=== PATIENT | male | born 1955 | race Hispanic/Latino ===

== ENCOUNTER 2024-07-31 16:15 | Emergency (ER) | payer OTHER ==
[~2024-07-31] VITALS: Ht 152.4 cm; Wt 75.7 kg
--- NOTE | 2024-07-31 16:29 | ERN ---
ED Note History of Present Illness Stated Complaint: SEND BY RONNELL Chief Complaint: Abdominal Pain Time Seen by MD: 16:19 Dictation: Patient is a 69-year-old male with a past medical history of hyperlipidemia, diabetes type 2, heart disease, and leukemia presents to the ED for pain in the right upper abdomen. Patient denies any chest pain, nausea, vomiting, diarrhea, fevers, or chills. Patient denies any association of pain with eating. Allergies: Coded Allergies: iodine (Unverified Allergy, Unknown, 07/31/24) TOPICAL Home Meds Active Scripts Pantoprazole Sodium (Protonix) 40 Mg Ectab, 1 TAB PO DAILY for 10 Days, #10 TAB 0 Refills Prov:JEREMY MCADNIEL MD 07/31/24 Naproxen (Naproxen) 500 Mg Tablet, 1 TAB PO BID for pain for 10 Days, #20 TAB 0 Refills Prov:JEREMY MCDANIEL MD 07/31/24 Past Medical History Past Medical History: Cancer, Diabetes-Type II, High Cholesterol, Heart Disease Additional Past Medical Hx: NEUROPATHY, LEUKEMIA Surgical History: None Review of System Dictation Constitutional-no chills, weight loss/gain, fever Eyes-no injury, pain, redness and discharge ENT-no injury, pain, swelling Cardiovascular no chest pain, palpitations, edema Respiratory no shortness of breath, cough, wheezing Abdomen/GI-no diarrhea, constipation, vomiting, nausea. Positive for pain in upper right abdomen Back no injury and pain Genitourinary no injury, bleeding and discharge Musculoskeletal/extremities no injury, deformity Skin no rash, discoloration Neuro-no headache, weakness, numbness, tingling, seizures, tremors Psych-no suicidal ideation, homicidal ideation, hallucinations, depression, anxiety, memory loss Initial Vital Sign VS Vital Signs Date Time Temp Pulse Resp B/P (MAP) Pulse Ox O2 Delivery O2 Flow Rate FiO2 07/31/24 16:18 98.2 61 16 173/84 99 Room Air 0 07/31/24 16:48 21 Physical Exam Dictation VITAL SIGNS: Reviewed. GENERAL APPEARANCE: Alert, oriented x3, no acute distress, obese. HEAD AND FACE: Non-traumatic. EYES: PERRL, pink conjunctivas, eyelid no trauma, anterior chamber clear. EARS: Pinnas intact and no signs of trauma or erythema. Ear canals clear and no discharge. TMs no erythema. NOSE: No discharge, no bleeding. OROPHARYNX: Mouth normal, teeth no caries, tongue pink. Pharynx clear, no erythema. Tonsils no exudates, no abscesses noted. Mucous membrane moist. NECK: Supple, non-tender, no thyromegaly, no masses, no JVD, no bruits. BREAST: Deferred. CHEST: No tenderness, no crepitus, no paradoxical movement, no retractions. LUNGS: Clear, well-ventilated, symmetric, no rales, no wheezing, no rhonchi, no stridor, good breath sounds bilaterally. HEART: Regular rate, regular rhythm, no murmur, no gallops. VASCULAR: No peripheral edema. ABDOMEN: Soft, positive bowel sounds, nondistended, no guarding, nontender, no rebound, no masses no hepatomegaly, no splenomegaly, no Okeefe's sign, no hernias. Pain on palpation of RUQ RECTAL: Swelling, lesion, possible pilonidal cyst GENITAL: Deferred. NEUROLOGICAL: Normal speech, gross motor function intact, gross sensory function intact. MUSCULOSKELETAL: Neck nontender, full range of motion, back nontender, full range of motion. EXTREMITIES: Nontender, full range of motion. SKIN: Color pink, dry, no turgor, no rash, no lacerations, no abrasions, no contusions. LYMPHATICS: Deferred. Results (Laboratory/Radiology) Laboratory/Radiology Laboratory Tests Test 07/31/24 12:44 07/31/24 16:45 Urine Color COLORLESS (YELLOW) Urine Appearance CLEAR (CLEAR) Urine pH 7.5 (5.0-8.0) Urine Specific [place] 1.013 (1.001-1.031) Urine Protein 10 mg/dL (NEGATIVE) H Urine Glucose (UA) >=1000 mg/dL (NEGATIVE) H Urine Ketones NEGATIVE mg/dL (NEGATIVE) Urine Occult Blood NEGATIVE (NEGATIVE) Urine Nitrate NEGATIVE (NEGATIVE) Urine Bilirubin NEGATIVE mg/dL (NEGATIVE) Urine Urobilinogen 0.2 mg/dL (0.2-1.0) Urine Leukocyte Esterase NEGATIVE Suzy/uL Urine RBC 0-1 /HPF (0-1) Urine WBC 0-1 /HPF (0-1) Urine Squamous Epithelial Cells RARE /HPF (0-2) Urine Bacteria None /HPF (None Seen) White Blood Count 25.6 K/uL (4.8-10.8) H Red Blood Count 4.69 MIL/uL (4.50-6.20) Hemoglobin 14.4 g/dL (14.0-18.0) Hematocrit 42.5 % (42-54) Mean Corpuscular Volume 90.6 fL (79-99) Mean Corpuscular Hemoglobin 30.7 pg (27.0-33.0) Mean Corpuscular Hemoglobin Concent 33.9 g/dL (32.0-36.0) Red Cell Distribution Width 13.3 % (11.0-15.5) Platelet Count 281 K/uL (130-400) Mean Platelet Volume 9.5 fL (7.5-10.5) Immature Granulocyte % (Auto) 12.6 % (0-1) H Neutrophils (%) (Auto) 64.2 % (40.0-77.0) Lymphocytes (%) (Auto) 12.3 % (21.0-51.0) L Monocytes (%) (Auto) 5.9 % (3.0-13.0) Eosinophils (%) (Auto) 1.1 % (0.0-8.0) Basophils (%) (Auto) 3.9 % (0.0-5.0) Neutrophils # (Auto) 16.4 K/uL (1.8-7.7) H Lymphocytes # (Auto) 3.1 K/uL (1.0-4.8) Monocytes # (Auto) 1.5 K/uL (0.1-1.0) H Eosinophils # (Auto) 0.27 K/uL (0.00-0.70) Basophils # (Auto) 1.00 K/uL (0.00-0.20) H Absolute Immature Granulocyte (auto 3.23 K/uL (0-1) H Nucleated Red Blood Cells 0.2 % (0.0-0.19) H Sodium Level 137 mmol/L (136-145) Potassium Level 3.4 mmol/L (3.5-5.1) L Chloride Level 100 mmol/L (101-111) L Carbon Dioxide Level 32 mmol/L (21-32) Blood Urea Nitrogen 9 mg/dL (7-18) Creatinine 0.8 mg/dL (0.5-1.3) Glomerular Filtration Rate Calc 95 mL/min (>90) Random Glucose 302 mg/dL (70-105) H Total Calcium 8.8 mg/dL (8.5-10.1) Total Bilirubin 0.3 mg/dL (0.2-1.0) Aspartate Amino Transf (AST/SGOT) 42 U/L (10-37) H Alanine Aminotransferase (ALT/SGPT) 54 U/L (12-78) Alkaline Phosphatase 173 U/L (50-136) H Total Protein 8.4 g/dL (6.0-8.3) H Albumin 3.7 g/dL (3.5-5.0) Lipase 72 U/L (16-77) Ultrasound Comment: Abdominal Ultrasound: IMPRESSION: Partially collapsed gallbladder with nonspecific gallbladder wall thickening. No evidence of pericholecystic edema. Normal appearance of the liver, pancreas, right kidney. CT Scan Comment: CT abdomen/pelvis w/o contrast: Findings: No evidence of nephro or ureterolithiasis is found. No hydronephrosis or ureteral dilatation is seen. The lung bases are clear. The stomach is unremarkable. It shows no wall thickening. No gross ulceration is seen. It is not overly distended. There are no surrounding inflammatory changes. No wall lesions are identified to suggest cancer. The spleen is unremarkable. It is not enlarged. The pancreas shows normal anatomy. It is not fatty replaced. It shows no lesions. The pancreatic duct is not dilated. The gallbladder is unremarkable. It shows no cholelithiasis. The gallbladder wall is normal in thickness. There is no pericholecystic fluid. The is no acute or chronic inflammation noted. The adrenal glands are unremarkable. There is no enlargement. No lesions are noted. The liver is unremarkable. It shows no focal masses. The appendix is unremarkable. It shows no evidence of inflammation. No appendicolith is seen. The small bowel is unremarkable. There is no evidence of dilatation to suggest obstruction. No evidence of adynamic ileus is seen. There is no small bowel wall thickening to suggest enteritis. The colon is unremarkable. The urinary bladder is unremarkable. There is no wall thickening to suggest tumor or inflammation. There are no intraluminal calculi. There are no diverticula. There is no evidence of chronic bladder outlet obstruction. There is no evidence of urinary bladder distention to suggest urinary retention. The other pelvic structures are unremarkable. The bony and vascular structures are unremarkable for the patient's age. IMPRESSION: NEGATIVE CT SCAN OF THE ABDOMEN AND PELVIS WITH ORAL AND IV CONTRAST. ED Course ED Course Orders Procedure Category Date Status Time Cbc With Differential LAB 07/31/24 Complete 16:20 Comprehensive LAB 07/31/24 Complete Metabolic Panel 16:20 Lipase LAB 07/31/24 Complete 16:20 Urinalysis Profile LAB 07/31/24 Complete 16:20 Pantoprazole 40mg Inj PHA 07/31/24 Complete (Protonix 40mg Inj 16:30 0.9%Nacl 1000ml (Ns PHA 07/31/24 Complete 1000ml) 16:30 Us Abdominal Ruq\Ltd US 07/31/24 Resulted 16:20 Ct Abdomen/Pelvis CT 07/31/24 Resulted W/Contrast 17:40 Iohexol (Omnipaque) PHA 07/31/24 Complete 17:56 Ketorolac PHA 07/31/24 Complete Tromethamine 15mg/Ml 19:00 Ketorolac PHA 07/31/24 Complete Tromethamine 15mg/Ml 19:00 Current Medications Medications (Trade) Dose Ordered Sig/Willi Route PRN Reason Start Time Stop Time Status Last Admin Dose Admin Iohexol (Omnipaque) 75 ml STK-MED ONCE IV 07/31/24 17:56 07/31/24 18:01 DC Ketorolac Tromethamine (toRADol) 15 mg ONCE ONCE IM 07/31/24 19:00 07/31/24 19:01 DC Ketorolac Tromethamine (toRADol) 15 mg ONCE ONCE IV 07/31/24 19:00 07/31/24 19:01 DC 07/31/24 19:04 Pantoprazole Sodium (PROTonix 40MG INJ) 40 mg ONCE ONCE IVP 07/31/24 16:30 07/31/24 16:31 DC 07/31/24 16:55 Sodium Chloride 2,271 ml @ 757 mls/hr ONCE ONCE IV 07/31/24 16:30 07/31/24 19:29 DC 07/31/24 16:55 Vital Signs Date Time Temp Pulse Resp B/P (MAP) Pulse Ox O2 Delivery O2 Flow Rate FiO2 07/31/24 19:39 98.4 75 18 141/75 99 Room Air* 0 21 07/31/24 18:35 98.4 85 18 184/104 99 Room Air* 0 21 07/31/24 16:48 98.4 74 18 176/67 98 Room Air* 0 21 07/31/24 16:18 98.2 61 16 173/84 99 Room Air 0 Medical Decision Making MDM MDM INITIAL IMPRESSION Initial history and physical concerning for cholelithiasis Contributing medical problems: Obesity, hypercholesterolemia I have reviewed the triage nursing notes and vital signs. Initial plan: Laboratory evaluation, Abdominal U/S, UA DATA REVIEW I have reviewed additional NN, repeat VS, and monitoring where indicated. Heart rate, blood pressure, and O2 saturation are acceptable. ED COURSE Interventions: Fluids, Toradol 15mg Reassessment: DISPOSITION Final diagnostic impression: biliary colic I discussed my findings, clinical impression and treatment recommendations with the patient. My final plan for disposition was made based upon -mild risk of complications and potential morbidity of the patient's condition. -Discussion with the patient regarding management options. Patient will be discharged and advised to follow up PCP DX & DISP Disposition: Discharge Departure Impression: Primary Impression: Biliary colic Condition: Stable Scripts Pantoprazole Sodium (Protonix) 40 Mg Ectab 1 TAB PO DAILY for 10 Days, #10 TAB 0 Refills Prov: JEREMY MCDANIEL MD 07/31/24 Naproxen (Naproxen) 500 Mg Tablet 1 TAB PO BID for pain for 10 Days, #20 TAB 0 Refills Prov: JEREMY MCDANIEL MD 07/31/24 Additional Instructions: Focus on eating a low fat diet to minimize gallbladder stimulation. Limit or avoid foods high in fat including fried foods, fatty meats, and dairy products. Increase your fiber intake through fruits, vegetables, and whole grains. Stay well hydrated to maintain bile flow. Follow up with primary care provider. FOLLOW-UP WITH PRIMARY CARE PROVIDER IN 1 TO 2 DAYS. TAKE MEDICATIONS DIRECTED HERE IN THE EMERGENCY ROOM. OKAY TO CONTINUE HOME MEDICATIONS UNLESS OTHERWISE DISCUSSED DURING YOUR VISIT IN THE EMERGENCY ROOM TODAY. RETURN TO YOUR NEAREST EMERGENCY ROOM IF SYMPTOMS WORSEN OR IF THERE IS NO IMPROVEMENT. CALL 911 IF YOU NEED IMMEDIATE ASSISTANCE. TAKE TYLENOL [id number] NEEDED AND IF NO CONTRAINDICATIONS ARE PRESENT. INCREASE ORAL HYDRATION. A WOUND CULTURE OR URINE CULTURE WAS ORDERED HERE IN THE EMERGENCY ROOM DEPARTMENT PLEASE FOLLOW-UP WITH PRIMARY CARE PROVIDER AND ADVISE THEM TO GET REPEAT PORTS FROM OUR FACILITY. IF YOU HAD ANY SHARLENE WRAP/SPLINTS THAT WERE APPLIED HERE, PLEASE DO NOT REMOVE THEM UNTIL YOU SEE YOUR PRIMARY CARE OR SPECIALTY. Time of Disposition: 18:45 I have reviewed I have reviewed the case I WAS PRESENT AND PARTICIPATED IN THE CARE OF THIS PATIENT ALONGSIDE WITH THE RESIDENT PHYSICIAN. I HAVE REVIEWED AND PERSONALLY MADE AND APPROVED THE MANAGEMENT PLAN THAT IS DOCUMENTED IN THE NOTE BY MYSELF WITH THE RESIDENT PHYSICIAN. I ACKNOWLEDGED FOR RESPONSIBILITY FOR THE PATIENT'S MANAGEMENT PLAN. I have examined patient JEREMY MCDANIEL MD Jul 31, 2024 16:29 CATE WANG MD Aug 03, 2024 08:54
[2024-07-31 16:52] LABS: BASOPHILS % (AUTO) 3.9 % (0.0-5.0); EOSINOPHILS # (AUTO) 0.27 K/uL (0.00-0.70); EOSINOPHILS % (AUTO) 1.1 % (0.0-8.0); HEMATOCRIT 42.5 % (42-54); IMMATURE GRANULOCYTE ABSOLUTE 3.23 K/uL (0-1); LYMPHOCYTES # (AUTO) 3.1 K/uL (1.0-4.8); LYMPHOCYTES % (AUTO) 12.3 % (21.0-51.0); MEAN CORPUSCULAR HEMOGLOBIN 30.7 pg (27.0-33.0); MEAN CORPUSCULAR HGB CONC 33.9 g/dL (32.0-36.0); MEAN CORPUSCULAR VOLUME 90.6 fL (79-99); MONOCYTES # (AUTO) 1.5 K/uL (0.1-1.0); MONOCYTES % (AUTO) 5.9 % (3.0-13.0); NEUTROPHILS # (AUTO) 16.4 K/uL (1.8-7.7); NEUTROPHILS % (AUTO) 64.2 % (40.0-77.0); NUCLEATED RED BLOOD CELLS 0.2 % (0.0-0.19); PLATELET COUNT (AUTO) 281 K/uL (130-400); RED BLOOD CELL COUNT(AUTO) 4.69 MIL/uL (4.50-6.20); RED CELL DISTRIBUTION WIDTH 13.3 % (11.0-15.5); WHITE BLOOD COUNT (AUTO) 25.6 K/uL (4.8-10.8)
[2024-07-31] MEDS: PANTOPrazole 40 MG/VIAL IVP ONE (16:55)
[2024-07-31] MEDS: [UNRECOGNIZED DRUG - OTHER] IV ONE (16:55)
[2024-07-31 17:03] LABS: CREATININE 0.8 mg/dL (0.5-1.3); POTASSIUM 3.4 mmol/L (3.5-5.1)
[2024-07-31 17:10] LABS: ALBUMIN 3.7 g/dL (3.5-5.0); BILIRUBIN,TOTAL 0.3 mg/dL (0.2-1.0); TOTAL PROTEIN, SERUM 8.4 g/dL (6.0-8.3)
--- NOTE | 2024-07-31 17:25 | HMCIMG ---
US ABDOMINAL RUQ\E\LTD REASON: right upper quad pain, rule out cholelithiasis COMPARISON: None TECHNIQUE: Ultrasound right upper quadrant of the abdomen. FINDINGS: There is no free fluid seen within the upper abdomen. The pancreas is homogeneous. The liver is homogeneous. Maximum diameter of the liver is 16.7 cm. Gallbladder is visualized and is partially collapsed. Gallbladder valdivia demonstrate nonspecific thickening. No pericholecystic edema. No acoustic reflectors. Common bile duct measures 3.9 mm diameter. Right renal cortex homogeneous. Right kidney measures 11.0 x 4.9 cm. IMPRESSION: Partially collapsed gallbladder with nonspecific gallbladder wall thickening. No evidence of pericholecystic edema. Normal appearance of the liver, pancreas, right kidney.
[2024-07-31 17:43] LABS: ADD UA MICROSCOPIC YES; APPEARANCE,URINE CLEAR (CLEAR); BILIRUBIN,URINE NEGATIVE (NEGATIVE); COLOR,URINE COLORLESS (YELLOW); GLUCOSE, URINE (UA) >=1000 mg/dL (NEGATIVE); KETONES,URINE NEGATIVE (NEGATIVE); LEUKOCYTE ESTERASE ,URINE NEGATIVE Leu/uL (NEGATIVE); NITRATE,URINE NEGATIVE (NEGATIVE); OCCULT BLOOD,URINE NEGATIVE (NEGATIVE); PH,URINE 7.5 (5.0-8.0); PROTEIN,URINE 10 mg/dL (NEGATIVE); UROBILINOGEN,URINE 0.2 mg/dL (0.2-1.0)
[2024-07-31 17:45] LABS: RBC,URINE 0-1 /HPF (0-1); SQUAMOUS EPITHELIAL CELL,UR RARE /HPF (0-2); WBC,URINE 0-1 /HPF (0-1)
[2024-07-31] MEDS ORDERED: IOHEXOL-350 75 ML VIAL IV ONE (17:56)
--- NOTE | 2024-07-31 18:28 | HMCIMG ---
Exam Type: CT ABDOMEN/PELVIS W/CONTRAST Clinical Information: RUQ pain Comparison: None Contrast: 100 cc's Isovue 370 IV, no complications or adverse reactions CT Dose Index (CTDI): 31.60 mGy Dose Length Product (DLP): 1740.80 total mGy-cm Findings: No evidence of nephro or ureterolithiasis is found. No hydronephrosis or ureteral dilatation is seen. The lung bases are clear. The stomach is unremarkable. It shows no wall thickening. No gross ulceration is seen. It is not overly distended. There are no surrounding inflammatory changes. No wall lesions are identified to suggest cancer. The spleen is unremarkable. It is not enlarged. The pancreas shows normal anatomy. It is not fatty replaced. It shows no lesions. The pancreatic duct is not dilated. The gallbladder is unremarkable. It shows no cholelithiasis. The gallbladder wall is normal in thickness. There is no pericholecystic fluid. The is no acute or chronic inflammation noted. The adrenal glands are unremarkable. There is no enlargement. No lesions are noted. The liver is unremarkable. It shows no focal masses. The appendix is unremarkable. It shows no evidence of inflammation. No appendicolith is seen. The small bowel is unremarkable. There is no evidence of dilatation to suggest obstruction. No evidence of adynamic ileus is seen. There is no small bowel wall thickening to suggest enteritis. The colon is unremarkable. The urinary bladder is unremarkable. There is no wall thickening to suggest tumor or inflammation. There are no intraluminal calculi. There are no diverticula. There is no evidence of chronic bladder outlet obstruction. There is no evidence of urinary bladder distention to suggest urinary retention. The other pelvic structures are unremarkable. The bony and vascular structures are unremarkable for the patient's age. IMPRESSION: NEGATIVE CT SCAN OF THE ABDOMEN AND PELVIS WITH ORAL AND IV CONTRAST. This study was performed using dose reduction techniques to include automated exposure control and/or adjustment of the mA and/or kV according to patient size.
[2024-07-31] MEDS ORDERED: PANT40TA55 PO (18:53)
[2024-07-31] MEDS ORDERED: NAPR-1023 PO (18:53)
[2024-07-31] MEDS ORDERED: ketOROlac 15MG/ML VIAL (15MG/ML) IM ONE (19:00)
[2024-07-31] MEDS: ketOROlac 15MG/ML VIAL (15MG/ML) IV ONE (19:04)
[2024-07-31 19:39] VITALS: BP 141/75; PULSE 75; RESP 18; TEMP 98.4; O2SAT 99
== END 2024-07-31 20:21 | disposition home or self-care (01) ==
LOC: EDH 16:15
DX: K80.50 Calculus of bile duct without cholangitis or cholecystitis without obstruction (principal); E11.9 Type 2 diabetes mellitus without complications; E66.9 Obesity, unspecified; E78.00 Pure hypercholesterolemia, unspecified; I50.9 Heart failure, unspecified; Z88.8 Allergy status to other drugs, medicaments and biological substances; Z91.041 Radiographic dye allergy status
CPT/HCPCS: 99285; 74177; 96374; 76705; 96361; 96375; 80053; 83690; 85025; 81001; 36415; J7030; J2470; J1885; Q9967